=== PATIENT | male | born 1970 | race Caucasian/White ===

== ENCOUNTER 2025-03-12 11:55 | Emergency (ER) | payer MEDICAID ==
[~2025-03-12] VITALS: Ht 190.5 cm; Wt 127.0 kg
[~2025-03-12 11:55] MED LIST: ANAPROX DS550 MG PO; CLINDAMYCIN HC300 MG PO; CORTISPORIN 1%-10 M1 OT; DARVOCET N 1001 TAB PO; HYDROCODONE BIT1 T11 PO; NKHM; TRIMOX500 MG PO
[2025-03-12] MEDS ORDERED: METHOCARBAMOL 750 MG TAB PO ONE (12:45)
[2025-03-12] MEDS ORDERED: METHOCARBAMOL750 M1 PO (14:58)
[2025-03-12] MEDS ORDERED: NAPROSYN500 MG PO (14:58)
== END 2025-03-12 15:02 | disposition home or self-care (01) ==
LOC: ED 11:55
DX: S20.211A Contusion of right front wall of thorax, initial encounter (principal); Z88.6 Allergy status to analgesic agent; Z79.899 Other long term (current) drug therapy; V89.2XXA Person injured in unspecified motor-vehicle accident, traffic, initial encounter; Y93.I9 Activity, other involving external motion; Y92.488 Other paved roadways as the place of occurrence of the external cause; Y99.8 Other external cause status